=== PATIENT | female | born 1985 | race Caucasian/White ===

== ENCOUNTER 2018-12-08 01:30 | Emergency (ER) | payer BC ==
[~2018-12-08] VITALS: Ht 160 cm; Wt 88.5 kg
[2018-12-08 01:41] VITALS: BP 120/82
--- NOTE | 2018-12-08 01:45 | NUR ---
TO ED 12 WITH STEADY GAIT
--- NOTE | 2018-12-08 02:49 | NUR ---
PT BIB SELF CO SORE THROAT AND COUGH SINCE YESTERDAY. REPORTS 6/10 THROAT PAIN. TOOK IBUPROFEN 800 MG AT MIDNIGHT. DENIES FEVER. ADMITS N/V TODAY BUT NO EMESIS OR DIARRHEA.
[2018-12-08] MEDS ORDERED: cefTRIAXone 1,000 MG VIAL ONE (03:03)
--- NOTE | 2018-12-08 03:25 | NUR ---
Dr. Gilbert evaluating patient at bedside.
--- NOTE | 2018-12-08 03:28 | NUR ---
DR. DENTON IN ROOM EVALUATING PT.
[2018-12-08] MEDS ORDERED: PENICILLIN G BENZATHINE L-A 1.2 MU/2 ML SYR IM ONE (03:35)
[2018-12-08 04:15] VITALS: BP 118/81
--- NOTE | 2018-12-08 04:15 | NUR ---
Patient discharged with v/s stable. Written and verbal after care instructions given and explained. Patient alert, oriented and verbalized understanding of instructions. Ambulatory with steady gait. All questions addressed prior to discharge. ID band removed. Patient advised to follow up with PMD. Rx of ZOFRAN AND PREDNISONE given. Patient educated on indication of medication including possible reaction and side effects. Opportunity to ask questions provided and answered.
== END 2018-12-08 04:15 | disposition home or self-care (01) ==
LOC: MED 01:30
DX: J02.0 Streptococcal pharyngitis (principal); R11.0 Nausea
CPT/HCPCS: 96372; 99283; J0561; J7060; J0696

== ENCOUNTER 2019-08-03 18:55 | Emergency (ER) | payer BC ==
[~2019-08-03] VITALS: Ht 160 cm; Wt 81.6 kg
[2019-08-03 19:10] VITALS: BP 116/55
--- NOTE | 2019-08-03 19:13 | NUR ---
TO LOBBY A/W BED AMBULATORY
--- NOTE | 2019-08-03 19:18 | NUR ---
PT AMBULATED TO BED 03
--- NOTE | 2019-08-03 19:39 | NUR ---
34 YO F C/O 8/10 SHARP LEFT EAR PAIN X SINCE LAST NIGHT. PT STATES SHE STARTED WITH COLD S/SX X 1 WEEK AGO. DENIES FEVER, HAS CHILLS. -- PT AWAKE A/O X4. CALM, COOPERATIVE. ANSWERS QUESTIONS WITHOUT DIFFICULTY. BEHAVIOR APPROPRIATE. -- SKIN PINK, WARM, DRY. BREATHING EVEN, UNLABORED. PMH-- DENIES RX-- 800 MG IBUPROFEN X 1 HOUR AGO, OTC EAR DROPS; NO RELIEF
[2019-08-03] MEDS ORDERED: IBUPROFEN 600 MG TAB PO ONE (20:30)
[2019-08-03 20:53] VITALS: BP 116/55
--- NOTE | 2019-08-03 20:53 | NUR ---
Patient discharged with v/s stable by Dr Rushing. Written and verbal after care instructions given and explained by Dr Rushing. Patient alert, oriented and verbalized understanding of instructions. Ambulatory with steady gait. All questions addressed prior to discharge by Dr Rushing. ID band removed by Dr Rushing. Patient advised to follow up with PMD by Dr Rushing. Rx of Augmentin, Naprosyn given by Dr Rushing. Patient educated on indication of medication including possible reaction and side effects by Dr Rushing. Opportunity to ask questions provided and answered by Dr Rushing.
== END 2019-08-03 20:53 | disposition home or self-care (01) ==
LOC: MED 18:55
DX: H66.92 Otitis media, unspecified, left ear (principal)
CPT/HCPCS: 99283